=== PATIENT | male | born 1995 | race Caucasian/White ===

== ENCOUNTER 2018-05-20 16:13 | Emergency (ER) | payer OTHER ==
[~2018-05-20] VITALS: Ht 182.9 cm; Wt 70.6 kg
[2018-05-20 16:17] VITALS: BP 117/72; TEMP 36.6; Ht 182.9 cm; Wt 70.6 kg
[2018-05-20 16:50] VITALS: PULSE 55; O2SAT 100
[2018-05-20] MEDS ORDERED: OMEG10007 PO (17:04)
[2018-05-20] MEDS ORDERED: CHOL100027 PO (17:04)
[2018-05-20] MEDS ORDERED: MELA1CAP PO (17:04)
[2018-05-20] MEDS ORDERED: ST J150C6 PO (17:04)
[2018-05-20] MEDS ORDERED: IBUP-1050 PO (17:04)
[2018-05-20] MEDS ORDERED: ASCO500T3 PO (17:04)
--- NOTE | 2018-05-20 17:14 | DIAGNOSTIC IMAGING REPORT ---
CHEST 2 VIEWS ROUTINE HISTORY: Atypical chest pain short of breath s/p smoking marijuana COMPARISON: None. FINDINGS: The lungs are clear. Cardiac silhouette is normal in size. No pleural effusions. No pneumothorax. IMPRESSION: No acute process. Electronically signed by: Abbe Jackson M.D. 05/20/2018 5:13 PM Dictated Date/Time: 05/20/2018 5:00 PM
--- NOTE | 2018-05-20 17:19 | EMERGENCY ROOM VISIT NOTE ---
History Report prepared by Scribe: Marline Jsoe Under the Supervision of: Dr. Regan Stevenson M.D. First contact with patient: 16:20 Chief Complaint: IRREGULAR HEARTBEAT Stated Complaint: IRREGULAR HEART RATE,PAINS IN CHEST WHEN BREATHING History of Present Illness The patient is a 22 year old male who presents to the Emergency Room with complaints of intermittent palpitations beginning this morning. He notes the palpitations began after he smoked marijuana this morning. The patient reports he smokes marijuana daily, and did not smoke spice or K2. He states he began experiencing intermittent SOB 2 or 3 days ago, and feels as though he is currently experiencing an irregular heartbeat, anxiety, and dizziness. He reports a sharp, mild pain in his upper chest upon deep breaths. The patient notes he did a hard chest workout yesterday and thinks that could be causing his pain. He denies recent extended car or plane rides, no hemoptysis, no recent immobilization, no recent surgeries or traumas. The patient denies cocaine, heroin, or steroid use. Source of History: patient Onset: this morning Position: chest Quality: other (palpitations) Timing: intermittent Associated Symptoms: + chest pain (sharp, mild, upon deep breaths), + SOB ( intermittent) Review of Systems See HPI for pertinent positives and negatives. A total of ten systems were reviewed and were otherwise negative. Past Medical & Surgical Chest pain Family History No pertinent family history stated. Social History Smoking Status: Never Smoker Drug Use: marijuana (daily) Current/Historical Medications Scheduled Ascorbic Acid (Vitamin C), 1 TAB PO DAILY Cholecalciferol (Vitamin D 1000 Unit), 1,000 INTER.UNIT PO DAILY Fish Oil ([place]-3), 1 CAP PO DAILY Ibuprofen (Advil), 200 MG PO PRN Melatonin (Melatonin), 1 CAP PO HS Dominga's Wort ([place] Perf ([place] Wort), 1 CAP PO DAILY Allergies Coded Allergies: No Known Allergies (Unverified , 05/20/18) Physical Exam Vital Signs Date Time Temp Pulse Resp B/P (MAP) Pulse Ox O2 Delivery O2 Flow Rate FiO2 05/20/18 16:50 55 14 100 05/20/18 16:39 52 05/20/18 16:17 36.6 82 18 117/72 99 Room Air Physical Exam Physical Exam GENERAL: He is oriented to person, place, and time. He appears well-developed and well-nourished. He does not appear distressed. HENT: Exam performed. Head: Normocephalic and atraumatic. Right Ear: External ear normal. No mastoid tenderness. Left Ear: External ear normal. No mastoid tenderness. Mouth/Throat: The oropharynx is clear and moist. No trismus in the jaw. No dental abscesses or uvula swelling. No oropharyngeal exudate or tonsillar abscesses. EYES: Conjunctivae and EOM are normal. Pupils are equal, round, and reactive to light. Right eye exhibits no discharge. Left eye exhibits no discharge. No scleral icterus. NECK: Normal range of motion. Neck supple. No JVD present. No spinous process tenderness present. No carotid bruit present. No rigidity. No tracheal deviation and normal range of motion present. No Brudzinski's sign and no Kernig 's sign noted. CV: Normal rate, regular rhythm, normal heart sounds and intact distal pulses. There is no peripheral edema. Palpable radial pulses bue. PULM/CHEST: Effort normal and breath sounds normal. No respiratory distress. No stridor. He has no wheezes. He has no rales. Chest Wall: Pain on palpation of anterior chest reproducing chief complaint. ABD: The abdomen is soft. Bowel sounds are normal. He has no distension. No mass is present. There is no tenderness. There is no rebound, no guarding, no Guajardo's sign and no tenderness at McBurney's point. Rovsig negative. MUSC/SKEL: Normal range of motion. There is no peripheral edema, tenderness or deformity. LYMPH: No cervical adenopathy. NEURO: He is alert and oriented to person, place, and time. He has normal strength. No cranial nerve deficit or sensory deficit. Coordination and gait normal. GCS eye subscore is 4. GCS verbal subscore is 5. GCS motor subscore is 6. Cerebellar tests wnl. SKIN: Skin is warm and dry. He is not diaphoretic. PSYCH: He has a normal mood and affect. Behavior is normal. Judgment and thought content normal. Medical Decision & Procedures ER Provider Diagnostic Interpretation: Radiology results as stated below per my review and radiologist interpretation: CHEST 2 VIEWS ROUTINE HISTORY: Atypical chest pain short of breath s/p smoking marijuana COMPARISON: None. FINDINGS: The lungs are clear. Cardiac silhouette is normal in size. No pleural effusions. No pneumothorax. IMPRESSION: No acute process. Electronically signed by: Abbe Jackson M.D. 05/20/2018 5:13 PM Dictated Date/Time: 05/20/2018 5:00 PM ECG Per My Interpretation Indication: palpitations Rate (beats per minute): 53 Rhythm: normal sinus Findings: other (NH QRS QTC intervals within normal limits. no ST elevation or depression.) ED Course 1622: The patient was evaluated in room A10. A complete history and physical exam was performed. 1718: Vital signs stable, EKG and imaging within normal limits. WELLS score low , PERK negative. Pt will be discharged and advised to stop smoking marijuana. DISCHARGE - Plan of care discussed with patient and questions answered. The patient was given both verbal and printed discharge instructions. The patient verbalized understanding and ability to comply. The patient is to seek outpatient follow up as noted in the discharge instructions. The patient verbalized understanding and ability to comply. The patient is discharged in stable condition. The patient was instructed to return for worsening symptoms. Medical Decision Vital signs stable, EKG and imaging within normal limits. WELLS score low, PERK negative. Pt will be discharged and advised to stop smoking marijuana. Medication Reconcilliation Current Medication List: was personally reviewed by me Blood Pressure Screening Patient's blood pressure: Normal blood pressure Blood pressure disposition: Did not require urgent referral Impression Primary Impression: Marijuana abuse Additional Impression: Chest pain Scribe Attestation The scribe's documentation has been prepared under my direction and personally reviewed by me in its entirety. I confirm that the note above accurately reflects all work, treatment, procedures, and medical decision making performed by me. The chart was completed utilizing [employer] Speech voice recognition software. Grammatical errors, random word insertions, pronoun errors, and incomplete sentences are an occasional consequence of this system due to software limitations, ambient noise, and hardware issues. Any formal questions or concerns about the content, text, or information contained within the body of this dictation should be directly addressed to the physician for clarification. Departure Information Dispostion Home / Self-Care Referrals No Doctor, Assigned (PCP) Forms HOME CARE DOCUMENTATION FORM, IMPORTANT VISIT INFORMATION Patient Instructions [facility] Problem Qualifiers Additional Impression: Chest pain Chest pain type: unspecified Qualified Codes: R07.9 - Chest pain, unspecified
== END 2018-05-20 16:50 | disposition home or self-care (01) ==
LOC: C.EDB 16:16 → EDBD 16:16 → C.EDA 16:50
DX: F12.188 Cannabis abuse with other cannabis-induced disorder (principal); R07.9 Chest pain, unspecified; R00.8 Other abnormalities of heart beat